=== PATIENT | male | born 1970 | race Caucasian/White ===

== ENCOUNTER 2016-09-28 03:53 | Emergency (ER) | payer OTHER ==
[~2016-09-28] VITALS: Ht 175.3 cm; Wt 81.6 kg
[~2016-09-28 03:53] MED LIST: METH10OR11 PO
[2016-09-28 04:14] VITALS: BP 107/65
== END 2016-09-28 05:54 | disposition left against medical advice (07) ==
LOC: ER 03:53
DX: Z53.21 Procedure and treatment not carried out due to patient leaving prior to being seen by health care provider (principal)
CPT/HCPCS: A4606; Z7610

== ENCOUNTER 2016-10-14 03:41 | Emergency (ER) | payer OTHER ==
[~2016-10-14] VITALS: Ht 182.9 cm; Wt 90.7 kg
[2016-10-14] MEDS ORDERED: FLUORESCEIN SODIUM OPHTH 1 EA STRIP ONE (04:11)
[2016-10-14] MEDS ORDERED: TETRACAINE HCL 0.5% OPHTALMIC 15 ML BOTTLE ONE (04:11)
[2016-10-14] MEDS ORDERED: TETRACAINE HCL/PF 0.5% UD 2 ML BOTTLE OP ONE (04:30)
[2016-10-14] MEDS ORDERED: FLUORESCEIN SODIUM OPHTH 1 EA STRIP OP ONE (04:30)
[2016-10-14] MEDS ORDERED: acetaZOLAMIDE 250 MG TABLET PO ONE (04:30)
[2016-10-14] MEDS ORDERED: TIMOLOL 0.5% SOLN OPHTH 5 ML BOTTLE OP ONE (04:30)
[2016-10-14] MEDS ORDERED: TIMOLOL 0.5% SOLN OPHTH 5 ML BOTTLE ONE (04:30)
[2016-10-14] MEDS ORDERED: GENTAMICIN OPTH SOLN 0.3% 5 ML BOTTLE OP ONE (04:30)
[2016-10-14] MEDS ORDERED: GENTAMICIN OPTH SOLN 0.3% 5 ML BOTTLE ONE (04:33)
[2016-10-14] MEDS ORDERED: acetaZOLAMIDE 250 MG TABLET ONE (04:50)
[2016-10-14] MEDS ORDERED: HYDROCODONE/APAP 10/325MG 1 EA TABLET ONE (04:55)
[2016-10-14] MEDS ORDERED: ONDANSETRON 4 MG TAB.RAPDIS ONE (04:55)
[2016-10-14] MEDS ORDERED: HYDROCODONE/APAP 10/325MG 1 EA TABLET PO ONE (05:00)
[2016-10-14] MEDS ORDERED: ONDANSETRON 4 MG TAB.RAPDIS SL ONE (05:00)
[2016-10-14] MEDS ORDERED: BRIMONIDINE TARTRATE OPHT SOLN 5 ML BOTTLE ONE (05:33)
[2016-10-14] MEDS ORDERED: BRIMONIDINE TARTRATE OPHT SOLN 5 ML BOTTLE OP ONE (06:00)
[2016-10-14 06:24] VITALS: BP 132/70
== END 2016-10-14 06:24 | disposition home or self-care (01) ==
LOC: ER 03:41
DX: H40.212 Acute angle-closure glaucoma, left eye (principal); S05.02XA Injury of conjunctiva and corneal abrasion without foreign body, left eye, initial encounter; J45.909 Unspecified asthma, uncomplicated; F31.9 Bipolar disorder, unspecified; F17.200 Nicotine dependence, unspecified, uncomplicated; X58.XXXA Exposure to other specified factors, initial encounter; Y93.9 Activity, unspecified; Y92.89 Other specified places as the place of occurrence of the external cause; Y99.8 Other external cause status
CPT/HCPCS: A4606; Q0162; Z7610